=== PATIENT | female | born 1995 | race Hispanic/Latino ===

== ENCOUNTER 2017-07-28 11:38 | Day surgery (SDC) | payer OTHER ==
[2017-07-27 15:24] VITALS: BMI 22.6
[2017-07-28 12:12] LABS: HEMOGLOBIN 15.5 g/dL (12.0-16.0); MEAN CELL VOLUME 87.7 fl (81.0-99.0); MEAN CORPUSCULAR HEMOGLOBIN 29.9 pg (27.0-31.0); MEAN CORPUSCULAR HGB CONC 34.1 g/dL (33.0-37.0); RBC 5.19 Mil/uL (3.80-5.20); RED CELL DISTRIBUTION WIDTH 12.2 % (11.5-14.5); WHITE BLOOD COUNT 8.7 K/uL (4.8-10.8)
[2017-07-28] MEDS ORDERED: Lactated Ringer's 1,000 ML IV ONE ×3 (14:07→22:10)
[2017-07-28] MEDS ORDERED: Propofol 10 mg/ml Inj (20 ML) ONE (18:28)
[2017-07-28] MEDS ORDERED: Midazolam 2 MG/2 ML VIAL ONE (18:29)
[2017-07-28] MEDS ORDERED: Lidocaine 4% (Laryng-O-Jet) Kit MM ONE (18:29)
[2017-07-28] MEDS ORDERED: Dexamethasone 4 mg/1 ml ONE (18:29)
[2017-07-28] MEDS ORDERED: Lidocaine 1% 5ml Abboject IV ONE (18:29)
[2017-07-28] MEDS ORDERED: Rocuronium 10 mg/ml (5 ml) ONE ×2 (18:30→21:13)
[2017-07-28] MEDS ORDERED: Bupivacaine 0.5% Inj(30mL) ONE (18:52)
[2017-07-28] MEDS ORDERED: ceFAZolin IV 1 gm in Dextrose 1 GM/50 ML BAG IVPB ONE (18:52)
[2017-07-28] MEDS ORDERED: Neostigmine Methylsulfate 3mg/3ml Syringe IV ONE (19:14)
[2017-07-28] MEDS ORDERED: Succinylcholine 200 mg/10 ml Inj IV ONE (19:15)
[2017-07-28] MEDS ORDERED: Sodium Chloride 0.9% 1,000 ML IV ONE (21:00)
[2017-07-28] MEDS ORDERED: HYDROmorphone 0.5 mg/0.5 ml ISec IVP PRN ×2 (22:09→22:36)
[2017-07-28] MEDS ORDERED: Lactated Ringer's 1,000 ML IV SCH ×2 (22:15→22:45)
[2017-07-28] MEDS ORDERED: Oxycodone/Acetaminophen 5/325 mg Tab PO ONE (22:36)
[2017-07-28 23:42] VITALS: RESP 20
[2017-07-29 09:12] VITALS: BP 114/65; PULSE 74; TEMP 98.4
[2017-07-29 11:33] VITALS: O2SAT 100
--- NOTE | 2017-08-01 08:38 | PCM.OP ---
Operative Report - Operative Report Date of Surgery/Procedure: 07/28/17 Time of Surgery/Procedure: 08:00 Surgeon: Dr. Manuel Espinoza Histology Technologist: Dr. Dickson Ervin Anesthesia/Sedation: general/Dr. Fry Pre-Operative Diagnosis: endometriosis and abdominal pain Post-Operative Diagnosis: same Indication for Surgery: as above Operative Findings: endometriosis Procedure/Operation Description: 1-Appendectomy. 2-Excision multile arnold- rectal endometriosis (times two). Breif Histroy: This is a 21 year old woman with a past surgical history of endometriosi with continued abdominal pain who was brought to the operating room by Dr. dickson Ervin when he noticed involvement of the appendix and rectum. Intraoperative consultation was requested by general surgery. Description of the procedure: Dr. ervin had already initiated the robotic procedure (separate dictation Dr. Ervin). After taking control of the robotic console the appendix was mobilized and retracted anteriorly. With blunt and sharp dissection with the aid of electrocautery the appendix mesentery was dessicated as well as the appendiceal artery. The base of the appendix was disected and two 3-0 looped PDS was used to ligate the appendix. The appnedix was then transected and sent to apthology as a separate specimen. Our attentiion then turned to the arnold-rectal area where the first lesion was incised circumferentially with blunt and sharp dissection with the aid of electrocautery and lifted en-bloc from the rectu. The lesion was marked and sent to pathology separartely. The second lesion was removed in a simialr manner and also sent separately to pathology. Hemostasis was deemed adeqaute and othe operatioin was turned over to Dr. Ervin (separate dictation Dr. Ervin ). Estimated Blood Loss: 5 cc Complications: none Discharge & Condition: stable
--- NOTE | 2017-08-20 09:27 | OP ---
PROCEDURE DATE: 07/28/2017 SURGEON: Dickson Ervin MD ACCESS CLERK: Olga Jackson ANESTHESIOLOGIST: Manuel Altamirano MD ANESTHETIC: General Endo PREOPERATIVE DIAGNOSES: MD PROVIDES POSTOPERATIVE DIAGNOSES: PROVIDES PROCEDURE PERFORMED: Davinci Laparoscopy, Hysteroscopy, Robotic Appendectomy, Cystoscopy, Removal OF IUD (Cystoscopy with bilateral urethral catheterization, retrograde injection of indocyanine green in the right and left ureter, diagnostic hysteroscopy, laparoscopy, robotic da Azael, excision of endometriosis, ablation of endometriosis, and bilateral ureterolysis. There is a lysis of adhesion to be dictated separately by Dr. Manuel Espinoza) COMPLICATIONS: None. SAMPLES: Sent to pathology. DRAINS: Lyle catheter. ESTIMATED BLOOD LOSS: Minimal. HISTORY: MD PROVIDES HISTORY DESCRIPTION OF PROCEDURE: After the consent was obtained, the patient was brought to the operating room and placed on the operating table in the dorsal supine position. An intravenous catheter was started; antibiotics were administered. After satisfactory anesthesia was induced, the patient was then positioned in dorsal lithotomy position, and every area prone to pressure was padded. The external genitalia in the abdomen was sterilely prepped and draped in the standard fashion and a time out was performed. At this point, the cystoscope was introduced in the bladder under direct vision, a segal-cystoscopy was performed and attention was paid to both ureteral orifices, which were in a normal anatomical position. The left ureteral orifice was then catheterized with a [place] open ending ureteral catheter. A solution of indocyanine green of 5 mL was injected into the left ureter and after the ureteral catheter was advanced into the distal ureter. The ureteral catheter was then removed. Attention was paid to the right ureteral orifice and at this point, a urethral catheter was advanced to the level of the right distal ureter. An additional 4 mL of indocyanine green were injected into the right ureter. The ureteral catheter was then removed. The bladder was then inspected and noted to be free of tumors, stones, or bleeding sources. The cystoscope was then removed and a 16 Bol[place]ian Lyle catheter was placed. At this point, attention was turned to the vaginal area, where a speculum was placed in the vagina. The anterior lip of the cervix was grasped. The uterus was dilated and the hysteroscope was inserted in the uterine cavity revealing a normal size cavity with both ureters also being visualized. At this point, the hysteroscope was removed, and a Valtchev uterine manipulator was placed in the uterus, and the attention was turned to the abdomen. An incision was made below the umbilicus with a standard open laparoscopy technique. The abdominal cavity was then entered in a blunt fashion. Under direct visualization, additional trocars were inserted, left upper quadrant, right upper quadrant, and mid quadrant. At this point, the da Azael robot was brought on to the field and it was docked. The findings were followed. There were multiple areas which were slightly erythematous suggestive of endometriosis, mostly in the posterior cervix and the right and the left pelvic side wall. There were adhesions between the sigmoid colon and the descending colon attaching the concerning colon to the left pelvic sidewall impeding the complete vision on the left pelvic side. Dr. Manuel Espinoza from General Surgery was called in and he took down those adhesions. He will dictate this part separately. At this point, after we were able to see both sides, the ovaries were inspected and appearing to be normal and tubes were also inspected. Attention was on the left-hand side where the fluorescent technology was used to identify the ureter on the left-hand side. The peritoneum overlying the ureter was picked up, it was lifted utilizing a surgical grasper and the retroperitoneal space was entered. The ureter was gently dissected off and the area of peritoneum was sent to pathology, dissected in toto. Similarly, on the right-end side after examined the right ovarian tube, again, the right ureter was identified. The peritoneum overlying the right ureter was elevated. The retroperitoneal space was entered and the wide area of peritoneum was also excised with a partial pelvic sidewall peritonectomy being performed. At this point, we checked with fluorescence for both ureters, they are appeared to be in perfect condition. A peritoneum was also excised from the posterior cervical area. Area suspicious for superficial endometriosis was bipolar coagulated in the posterior cul-de- sac. At this point, it was checked for hemostasis, and appeared to be excellent. The pelvis was irrigated. The ureter appeared to be in excellent condition and intact and undamaged. The bowel was also in perfect condition. At this point, the robot was undocked, the abdomen was desufflated, the instruments were removed. The incisions were closed in layers with 0 PDS for the fascia. The skin was closed with 4-0 Monocryl and a surgical glue. All the instruments were removed from the vagina. The cervix was inspected and appeared to be in excellent condition. Atthis point, the patient was woken up and taken to the recovery room in excellent condition. MD NAZANIN ConcepcionD
== END 2017-07-29 12:01 | disposition home or self-care (01) ==
LOC: H.OPSURG 11:38 → H.PEDS 23:39 → H.OPSURG 07-29 12:01
PROVIDERS: ATTEND Obstetrics & Gynecology Reproductive Endocrinology
DX: N80.0 Endometriosis of uterus (principal); K36 Other appendicitis; N80.8 Other endometriosis
CPT/HCPCS: 36415; 58301; 58563; 58662; 58999; 85027; 86850; 86900; 87070; 87101; 88304; 88305; C1729; J0330; J0690; J1100; J1170; J1885; J2250; J2405; J2704; J2710; J2765; J3010; J7030; J7040; J7120